=== PATIENT | female | born 1950 | race Caucasian/White ===

== ENCOUNTER 2016-10-15 11:54 | Emergency (ER) | payer OTHER, MEDICARE ==
[~2016-10-15] VITALS: Ht 157.5 cm; Wt 79.7 kg
[2016-10-15] MEDS ORDERED: ATORVASTATIN CA10 MG PO (12:18)
[2016-10-15] MEDS ORDERED: VITAMIN D31000 UNIT PO (12:19)
[2016-10-15] MEDS ORDERED: SERTRALINE HCL50 MG PO (12:19)
[2016-10-15] MEDS ORDERED: SERTRALINE HCL100 MG PO (12:19)
[2016-10-15] MEDS ORDERED: OS-CAL 500+D T1 EAC1 PO (12:20)
[2016-10-15 12:22] LABS: ADD MIUA? YES; BILIRUBIN NEGATIVE; BLOOD SMALL; COLOR STRAW ((YELLOW)); GLUCOSE (STRIP) NEGATIVE; KETONES NEGATIVE; LEUKOCYTES TRACE; NITRITE NEGATIVE; PROTEIN (STRIP) NEGATIVE; SPECIFIC GRAVITY 1.009 (1.000-1.030); UROBILINOGEN 0.2 MG/DL (0.2-1.0)
[2016-10-15 12:24] LABS: BACTERIA NONE SEEN /HPF; EPITHELIAL CELLS NONE SEEN /HPF; MUCUS NONE SEEN /LPF; RED BLOOD CELLS 0-5 /HPF (0-5); UCUL ADDED? NO; WHITE BLOOD CELLS 0-5 /HPF (0-5)
[2016-10-15 12:47] LABS: EOSINOPHIL (%) 3.6 % (0-5); EOSINOPHIL COUNT 0.2 K/uL (0-0.3); HEMATOCRIT 41.6 % (36.0-46.0); IMMATURE GRANULOCYTE (%) 0.2 % (0.0-0.7); INSTRUMENT ABS NEUTROPHIL CT 4.1 K/uL; LYMPHOCYTE COUNT 1.1 K/uL (1.0-2.8); MCH 26.8 PG (29.0-34.0); MCHC 31.7 G/DL (30.0-36.0); MCV 84.4 FL (83-99); MEAN PLAT.VOLUME 9.5 uM^3 (9.5-12.4); MONOCYTE (%) 6.5 % (3-12); MONOCYTE COUNT 0.4 K/uL (0-0.8); NEUTROPHIL (%) 69.4 % (45-76); NEUTROPHIL COUNT 4.1 K/uL (1.8-6.4); PLATELET COUNT 242 K/uL (156-360); RBC DIS.WIDTH-CV 13.3 % (11.8-14.6); RBC DIS.WIDTH-SD 41.2 % (39-53); RED BLOOD COUNT 4.93 M/uL (3.80-5.20); WHITE BLOOD COUNT 5.8 K/uL (4.1-10.2)
[2016-10-15 12:56] LABS: CHLORIDE 106 mEq/L (99-109); SODIUM 137 mEq/L (136-147)
[2016-10-15 12:58] LABS: GLUCOSE 110 mg/dL (70-99)
[2016-10-15 12:59] LABS: ANION GAP 7 MEQ/L (2-14)
[2016-10-15 13:02] LABS: GFR ESTIMATE (CALCULATED) > 59 mL/min/
[2016-10-15 13:03] LABS: UREA NITROGEN (BUN) 18 mg/dL (9-23)
[2016-10-15] MEDS ORDERED: TYLENOL WITH C1 EACH PO (14:31)
[2016-10-15 14:55] VITALS: BP 140/86
== END 2016-10-15 14:56 | disposition home or self-care (01) ==
LOC: EME 11:54
PROVIDERS: Emergency Medicine
DX: R10.30 Lower abdominal pain, unspecified (principal); R31.9 Hematuria, unspecified; E78.5 Hyperlipidemia, unspecified
CPT/HCPCS: 74176; 80048; 81003; 85025; 99281; 99285